=== PATIENT | female | born 1960 | race Caucasian/White ===

== ENCOUNTER 2022-04-14 17:20 | Emergency (ER) | payer MEDICARE, SELFPAY ==
[2022-04-14 17:27] VITALS: BP 126/78; PULSE 81; RESP 20; TEMP 36.5; O2SAT 94; BMI 19.8
[2022-04-14 17:30] VITALS: BP 128/68; PULSE 83; O2SAT 95
--- NOTE | 2022-04-14 17:35 | ED.GENADULT ---
HPI - General Adult General Time Seen by Provider: 17:36 Date Seen: 04/14/22 Chief complaint: Shortness of Breath/Dyspnea Stated complaint: Short of breath, cough, aches Time Seen by Provider: 04/14/22 17:26 Source: patient and RN notes reviewed Mode of arrival: ambulatory Limitations: no limitations History of Present Illness HPI narrative: Patient is a 61-year-old female with COPD the feels like she is having an exacerbation. She states she was on an antibiotic last week, possibly is with her mycin, and prednisone. She thinks they may have been done on Wednesday. She really has not had any relief. She has maybe had fevers. She does have some chest discomfort but does not feel like it is cardiac in nature, feels it hurts is her COPD. She is coughing quite a bit, does feel short of breath. Note she feels discomfort in her shoulders from coughing so much. She has some abdominal soreness from coughing so much. No nausea or vomiting, no diarrhea. She has had some sore throat and congestion. She does continue to smoke some. She states she last did her inhaler this morning. Related Data Home Medications Medication Instructions Recorded Confirmed escitalopram oxalate 10 mg tablet mg 04/14/22 hydrochlorothiazide 12.5 mg tablet mg 04/14/22 Previous Rx's Medication Instructions Recorded prednisone 20 mg tablet 20 mg PO DAILY #20 tabs 04/14/22 Allergies Allergy/AdvReac Type Severity Reaction Status Date / Time morphine Allergy Verified 04/14/22 17:33 Review of Systems Status of ROS: Reports: 10 or more systems reviewed and unremarkable except as noted in History and below [facility] Social History (System 03/16/22 @ 12:18 by Kenya Lunsford) Smoking Status: Current every day smoker What tobacco products do you use: cigarettes Years smoked: 40 Second hand tobacco smoke exposure: Yes How often do you have a drink containing alcohol: never How often do you have six or more drinks on one occasion: Never AUDIT-C Alcohol total score: 0 Non-prescribed substance use: denies use service: No Exam Const: Vital Signs, click to edit/add: Vital Signs - 24 hr 04/14/22 17:27 04/14/22 18:00 04/14/22 18:00 Temperature 97.7 F Pulse Rate [Right Pulse Oximeter] 81 76 Respiratory Rate 20 Blood Pressure [Ri t Upper Arm] 126/78 Pulse Oximetry 94 94 95 Oxygen Delivery Me thod Room Air 04/14/22 17:30 04/14/22 18:30 Temperature Pulse Rate [Right Pulse Oximeter] 83 Respiratory Rate Blood Pressure [Ri t Upper Arm] 128/68 115/49 L Pulse Oximetry 95 Oxygen Delivery Me thod Room Air Documenting provider has reviewed patient's vital signs: yes Common normals: no apparent distress, oriented x3, no limitations and alert General appearance: cooperative, comfortable and frail appearing Nutritional appearance: thin HENMT: Common normals: normocephalic, head/scalp atraumatic, hearing grossly normal bilaterally, external ears normal, external nose normal, nasal mucous membranes and turbinates normal, moist oral mucous membranes, oropharynx normal, dentition normal and gingiva normal Head and scalp: normocephalic and atraumatic Nose: external nose normal and nasal mucous membranes and turbinates normal External ear: external ears normal Eye: Common normals: PERRL, EOMs intact bilaterally, conjunctivae normal and no scleral icterus Conjunctiva: conjunctiva(e) normal Pupil: PERRL Neck & C-Spine: Common normals: full ROM, no lymphadenopathy, supple, no meningeal signs, no JVD and thyroid normal Thyroid: thyroid normal Resp: Common normals: normal respiratory effort, no retractions and no use of accessory muscles Other: Has some coarse lung sounds when listening to her heart but no wheezing. Prolonged expiratory phase. She just coughs through breathing when I am asking to listen to her lungs. She otherwise can complete her sentences when I am talking to her. Cardio: Common normals: no JVD, regular rate, regular rhythm, S1 normal heart sound, S2 normal heart sound, no gallops, no clicks and no murmurs Rate: regular rate Rhythm: regular rhythm Heart sounds: S1 normal and S2 normal GI: Common normals: Normal to inspection, nondistended, normoactive bowel sounds present, soft to palpation, non-tender, no hepatosplenomegaly and no masses Palpation: soft and no hepatosplenomegaly Extremity: Other: No calf tenderness, no lower extremity edema Neuro: Common normals: oriented x3 and moves all extremities Sensorium/orientation: alert Meningeal signs: no meningeal signs Course Course Hospital Course: This certainly sounds like COPD exacerbation. Need to rule out underlying pulmonary infection such as pneumonia. We will consider cardiac stewart min disease as well. She does agree to be tested for COVID/influenza and will do RSV with this as well. Will get a portable chest x-ray and appropriate labs. We are going to have her do a DuoNeb and see if this helps diminish her coughing. Reevaluation(s) Reevaluation #1: Reviewed with her that her chest x-ray and labs are normal. She is not meeting any criteria of requiring hospitalization. We will give her 40 mg oral prednisone at this time and then send her out on a more prolonged taper. She states she thinks she will be able to get back in with her doctor shortly. I would like her to follow up in clinic certainly within the next 3-5 days. There does not seem to be an indication for antibiotics that I can see at this time. Time: 19:13 Vital Signs Vital signs: Initial Vital Signs Temperature 97.7 F 04/14/22 17:27 Temperature Source Temporal Artery Scan 04/14/22 17:27 Pulse Rate 81 04/14/22 17:27 Respiratory Rate 20 04/14/22 17:27 Blood Pressure 126/78 04/14/22 17:27 Blood Pressure Mean 94 04/14/22 17:27 Blood Pressure Position Sitting 04/14/22 17:27 Pulse Oximetry 94 04/14/22 17:27 Oxygen Delivery Method 04/14/22 17:27 Vital Signs Temperature 97.7 F 04/14/22 17:27 Pulse Rate 81 04/14/22 17:27 Respiratory Rate 20 04/14/22 17:27 Blood Pressure 126/78 04/14/22 17:27 Pulse Oximetry 94 04/14/22 17:27 Oxygen Delivery Method 04/14/22 17:27 Temperature 97.7 F 04/14/22 17:27 Pulse Rate 76 04/14/22 18:00 Respiratory Rate 20 04/14/22 17:27 Blood Pressure 115/49 L 04/14/22 18:30 Pulse Oximetry 95 04/14/22 18:00 Oxygen Delivery Method 04/14/22 17:30 Medical Decision Making Lab Data Lab results reviewed: Yes I reviewed the patient's lab results Labs: Lab Results 04/14/22 04/14/22 04/14/22 Range/Units 18:00 18:00 18:00 WBC 7.55 (4.50-11.00) K/uL RBC 4.39 (4.00-5.20) m/uL Hgb 13.6 (12.0-16.0) gm/dL Hct 39.5 (33.0-51.0) % MCV 90 (80-100) fL MCH 31 (26-34) pg MCHC 34 (32-36) gm/dL RDW Coeff of Ellie 12.7 (11.5-15.5) % Plt Count 254 (140-440) K/uL Neut % (Auto) 52.0 (42.0-72.0) % Lymph % (Auto) 33.5 (20-44) % [place] % (Auto) 12.7 H (0.0-11.0) % Eos % (Auto) 1.3 (0.0-7.0) % Baso % (Auto) 0.5 (0.0-3.0) % Neut # (Auto) 3.92 (1.7-7.0) K/uL Lymph # (Auto) 2.53 (0.90-2.90) K/uL [place] # (Auto) 1.00 H (0.00-0.90) K/UL Eos # (Auto) 0.10 (0.00-0.50) K/uL Baso # (Auto) 0.04 (0.00-0.30) K/uL Abs Immat Gran (auto) 0.00 (0.00-0.30) K/uL Sodium 139 (135-149) mmol/L Potassium 3.2 L (3.6-5.1) mmol/L Chloride 101 (96-114) mmol/L Carbon Dioxide 32 (20-32) mmol/L BUN 10 (7-30) mg/dL Creatinine 0.5 (0.5-1.5) mg/dL Estimated Creat Clear 44.42 Estimated GFR 107 ml/min Glucose 127 H (60-115) mg/dL Lactate 1.3 (0.5-1.9) mmol/L Calcium 8.9 (8.4-10.6) mg/dL Total Bilirubin 0.2 (0.1-1.5) mg/dL AST 23 (12-35) U/L ALT 23 (4-35) U/L Alkaline Phosphatase 61 (40-150) U/L C-Reactive Protein 0.9 (0.5-1.0) mg/dL NT-Pro-B Natriuret Pep 174 H (0-125) PG/mL Total Protein 6.3 (6.0-8.3) g/dL Albumin 4.0 (3.3-5.0) g/dL SARS-CoV-2 (PCR) (Negative) Influenza Type A (PCR) (Negative) Influenza Type B (PCR) (Negative) RSV (PCR) (Negative) POC Troponin I (0.01-0.04) ng/ml 04/14/22 04/14/22 Range/Units 18:00 18:00 WBC (4.50-11.00) K/uL RBC (4.00-5.20) m/uL Hgb (12.0-16.0) gm/dL Hct (33.0-51.0) % MCV (80-100) fL MCH (26-34) pg MCHC (32-36) gm/dL RDW Coeff of Ellie (11.5-15.5) % Plt Count (140-440) K/uL Neut % (Auto) (42.0-72.0) % Lymph % (Auto) (20-44) % [place] % (Auto) (0.0-11.0) % Eos % (Auto) (0.0-7.0) % Baso % (Auto) (0.0-3.0) % Neut # (Auto) (1.7-7.0) K/uL Lymph # (Auto) (0.90-2.90) K/uL [place] # (Auto) (0.00-0.90) K/UL Eos # (Auto) (0.00-0.50) K/uL Baso # (Auto) (0.00-0.30) K/uL Abs Immat Gran (auto) (0.00-0.30) K/uL Sodium (135-149) mmol/L Potassium (3.6-5.1) mmol/L Chloride (96-114) mmol/L Carbon Dioxide (20-32) mmol/L BUN (7-30) mg/dL Creatinine (0.5-1.5) mg/dL Estimated Creat Clear Estimated GFR ml/min Glucose (60-115) mg/dL Lactate (0.5-1.9) mmol/L Calcium (8.4-10.6) mg/dL Total Bilirubin (0.1-1.5) mg/dL AST (12-35) U/L ALT (4-35) U/L Alkaline Phosphatase (40-150) U/L C-Reactive Protein (0.5-1.0) mg/dL NT-Pro-B Natriuret Pep (0-125) PG/mL Total Protein (6.0-8.3) g/dL Albumin (3.3-5.0) g/dL SARS-CoV-2 (PCR) Negative SARS-CoV-2 (Negative) Influenza Type A (PCR) Negative PCR FLU A (Negative) Influenza Type B (PCR) Negative PCR FLU B (Negative) RSV (PCR) Negative PCR RSV (Negative) POC Troponin I 0.00 L (0.01-0.04) ng/ml Imaging Data Chest x-ray: Attestation: I have reviewed the pertinent imaging results. Radiologist's impression: Patient: SAIDA MA Facility:?[facility] Patient ID:?[id number] Site Patient ID:?[id number]. Site :?[id number] Study:?XRay Chest PORTABLE-04/14/2022 6:31:08 PM Ordering Physician:Mai Arriola Final Report: INDICATION: Cough, shortness of breath and COPD.. TECHNIQUE: Chest 1 view. COMPARISON: October 07, 2021. FINDINGS: Cardiovascular and mediastinum: Cardiomediastinal silhouette is within normal limits. Lungs and pleural spaces: Redemonstrated changes from COPD. Lungs are otherwise clear no evidence of pleural effusion. No pneumothorax identified. Bones and soft tissues: Unremarkable. IMPRESSION: No acute cardiopulmonary process identified. No significant interval change. Dictated by Ranjana Guthrie MD @ 04/14/2022 6:44:37 PM (Electronic Signature) ECG Data Attestation: I personally reviewed and interpreted this ECG as follows: (Sinus rhythm, 80 beats per minute, premature atrial complexes seen. QT corrected 454 milliseconds.) Prior ECG tracings: not available for review Critical Care Time Critical Care Time Critical Care Time: No Discharge Plan Discharge Clinical Impression: COPD exacerbation Patient Disposition: Home, Self-Care Condition: Stable Instructions: COPD (Chronic Obstructive Pulmonary Disease) (ED) Additional Instructions: Please schedule a follow-up appointment with your primary care provider in clinic, hope you can get this within the next 3-5 days. Take prednisone as prescribed. If you are clinically worsening with increased difficulty breathing, shortness of breath, cough/fever that is worsening, please seek re-evaluation. Activity Level: Activity as Tolerated Prescriptions: New prednisone 20 mg tablet 20 mg PO DAILY Qty: 20 0RF Rx Instructions: 60mg daily for 3 days, then 40mg daily for 3 days, then 20mg daily for 3 days, then 10mg (1/2 tab) daily to finish pills No Action escitalopram oxalate 10 mg tablet hydrochlorothiazide 12.5 mg tablet Stand Alone Forms: [employer] Info Instructions
--- NOTE | 2022-04-14 17:45 | CRLHL7_ITS ---
For Patients: As a result of the Cures Act, medical imaging exams and procedure reports are released immediately into your electronic medical record. You may view this report before your referring provider. If you have questions, please contact your health care provider. INDICATION: Cough, shortness of breath and COPD.. TECHNIQUE: Chest 1 view. COMPARISON: October 07, 2021. FINDINGS: Cardiovascular and mediastinum: Cardiomediastinal silhouette is within normal limits. Lungs and pleural spaces: Redemonstrated changes from COPD. Lungs are otherwise clear no evidence of pleural effusion. No pneumothorax identified. Bones and soft tissues: Unremarkable. IMPRESSION: No acute cardiopulmonary process identified. No significant interval change. Dictated by Ranjana Guthrie MD @ 04/14/2022 6:44:37 PM (Electronically Signed)
[2022-04-14] MEDS: IPRAT-ALBUT 0.5-2.5 MG/3 ML NEB 1 NEB IH (17:59)
[2022-04-14 18:00] VITALS: PULSE 76; O2SAT 94; O2SAT 95
[2022-04-14 18:12] LABS: Basophils Absolute Auto 0.04 K/uL (0.00-0.30); Basophils Percent Auto 0.5 % (0.0-3.0); Eosinophils Percent Auto 1.3 % (0.0-7.0); Hematocrit 39.5 % (33.0-51.0); Hemoglobin* 13.6 gm/dL (12.0-16.0); Lymphocytes Absolute Auto 2.53 K/uL (0.90-2.90); Lymphocytes Percent Auto 33.5 % (20-44); Mean Corpuscular HGB Conc 34 gm/dL (32-36); Mean Corpuscular Hemoglobin 31 pg (26-34); Mean Corpuscular Volume 90 fL (80-100); Monocytes Percent Auto 12.7 % (0.0-11.0); Neutrophils Absolute Auto 3.92 K/uL (1.7-7.0); Platelet Count* 254 K/uL (140-440); RDW Coefficient of Variation % 12.7 % (11.5-15.5); Red Blood Count 4.39 m/uL (4.00-5.20); White Blood Count* 7.55 K/uL (4.50-11.00)
[2022-04-14 18:17] LABS: Lactate* 1.3 mmol/L (0.5-1.9)
[2022-04-14 18:18] LABS: Slide Review Reflex No
[2022-04-14 18:30] VITALS: BP 115/49
[2022-04-14 18:32] LABS: Chloride* 101 mmol/L (96-114); PCR FLU A Negative PCR FLU A (Negative); PCR FLU B Negative PCR FLU B (Negative); PCR RSV Negative PCR RSV (Negative)
[2022-04-14 18:33] LABS: Potassium* 3.2 mmol/L (3.6-5.1); Sodium* 139 mmol/L (135-149)
[2022-04-14 18:35] LABS: Bilirubin Total* 0.2 mg/dL (0.1-1.5); Creatinine* 0.5 mg/dL (0.5-1.5); Est. Creatinine Clearance* 44.42; Estimated Glomerular Filt Rate 107 ml/min
[2022-04-14 18:36] LABS: Alanine Aminotransferase* 23 U/L (4-35); Alkaline Phosphatase* 61 U/L (40-150); Aspartate Amino Transferase* 23 U/L (12-35); Blood Urea Nitrogen* 10 mg/dL (7-30); Calcium* 8.9 mg/dL (8.4-10.6); Carbon Dioxide* 32 mmol/L (20-32); Total Protein* 6.3 g/dL (6.0-8.3)
[2022-04-14 18:39] LABS: C Reactive Protein* 0.9 mg/dL (0.5-1.0)
[2022-04-14 18:45] LABS: NT Pro B Type NatriureticPept* 174 PG/mL (0-125)
[2022-04-14 18:54] LABS: Glucose* 127 mg/dL (60-115)
[2022-04-14 19:03] VITALS: BP 111/48; PULSE 71; RESP 20; O2SAT 93
[2022-04-14 19:05] LABS: SARS PCR* Negative SARS-CoV-2 (Negative)
[2022-04-14] MEDS: predniSONE 10 MG TABLET 40 MG PO (19:25)
== END 2022-04-14 19:35 | disposition home or self-care (01) ==
PROVIDERS: Emergency Provider Family Medicine
DX: J44.1 Chronic obstructive pulmonary disease with (acute) exacerbation (principal); F17.210 Nicotine dependence, cigarettes, uncomplicated; Z20.822 Contact with and (suspected) exposure to COVID-19; I49.1 Atrial premature depolarization
CPT/HCPCS: 36415; 71045; 80053; 83605; 83880; 85025; 86140; 87502; 87634; 87635; 93005; 94640; 94761; 99284; 99285; J7512